=== PATIENT | female | born 1990 | race African-American/Black ===

== ENCOUNTER 2017-04-04 00:10 | Emergency (ER) | payer OTHER ==
[~2017-04-04] VITALS: Ht 160 cm; Wt 104.3 kg
[~2017-04-04 00:10] MED LIST: ANTIVERT25 MG PO; IBUPROFEN 800800 MG PO; NORCO 5-325 TA1 EACH PO
[2017-04-04 01:01] LABS: ABSOLUTE NEUTROPHILS 5.2 thou/uL (1.4-8.2); BASOPHILS 0.8 % (0.0-2.0); EOSINOPHILS 3.5 % (0.0-3.0); HEMATOCRIT 37.7 % (37.0-47.0); HEMOGLOBIN 12.8 gm/dL (12.0-15.0); MCH 30.1 pg (26.0-34.0); MCHC 33.9 g/dL (28.0-37.0); MCV 88.9 fL (80.0-100.0); MONOCYTES 9.2 % (1.0-8.0); PLATELET COUNT 210 thou/uL (150-400); POLYS 60.5 % (36.0-66.0); RBC 4.24 mil/uL (4.20-5.00); RDW 13.2 % (10.5-14.5); WBC 8.5 thou/uL (4.0-11.0)
[2017-04-04 01:02] LABS: MANUAL DIFF NO
[2017-04-04 01:07] LABS: CALCIUM 8.7 mg/dL (8.5-10.1); CREATININE 0.9 mg/dL (0.6-1.0)
[2017-04-04] MEDS ORDERED: PENICILLIN VK500 MG PO (03:28)
[2017-04-04] MEDS ORDERED: NORCO 5-325 TA1 EACH PO (03:28)
== END 2017-04-04 03:40 | disposition home or self-care (01) ==
LOC: ER 00:10
PROVIDERS: Emergency Medicine
DX: K08.89 Other specified disorders of teeth and supporting structures (principal)

== ENCOUNTER 2021-07-15 22:35 | Emergency (ER) | payer OTHER ==
[~2021-07-15 22:35] MED LIST changes: +PENICILLIN VK500 MG PO
== END 2021-07-15 22:44 | disposition left against medical advice (07) ==
LOC: ER 22:35
DX: S61.219A Laceration without foreign body of unspecified finger without damage to nail, initial encounter (principal); Z53.21 Procedure and treatment not carried out due to patient leaving prior to being seen by health care provider; X58.XXXA Exposure to other specified factors, initial encounter; Y93.89 Activity, other specified; Y92.89 Other specified places as the place of occurrence of the external cause; Y99.8 Other external cause status